=== PATIENT | female | born 1970 | race Two or more races ===

== ENCOUNTER 2024-01-26 09:31 | Outpatient (RCR) | payer MEDICAID, SELFPAY ==
--- NOTE | 2024-01-26 10:14 | PT.OIERPT ---
PT OP Initial Eval Patient Information Outpatient Physical Therapy Treatment Date: 01/26/24 Medical Diagnosis: F54.8 Z89.619 Treatment Dx #1: Gait imbalance with prosthesis Treatment Dx #2: Decreased transfers Start of Care: 01/26/24 Date of Onset: 12/27/22 Smoking Status Smoking Status: Never smoker Initial Assessment Subjective: Pt is 53 yr old bruneian speaking female presents with in W/C. 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 Pt's helps her stand pivot transfer from W/C and she doesn't ambulate at home since she doesn't trust her balance. Pt c/o pain where prosthesis meets her glute on R. PMH: extensive including acute renal failure, AVN, septic shock, cellulitis, PNA. Was admitted in hospital in [facility] for 5 months last year. Pt goal: to ambulate with prosthesis with good balance Objective: Transfers: Sit to stand: CGA to stand up if she uses hands on parallel bars. Without hand support, min/modAx1 Gait: CGA for safety with gait belt, painful prosthesis with compensation to avoid pain R hip AROM: Extension: neutral Flexion: 90 deg Assessment: Pt had difficulty donning the prosthesis in sitting with husbands help. Once it was on, she transferred from W/C to standing with hands pulling up on the parallel bars. She then ambulated with CGA about 20' with R glute pain but no LOB. Pt requires skilled therapy to meet goals and has fair/good rehab potential. Short Term and Personal Health Coach Goals 1. Do HEP with safely 2. Transfer from sit to stand with FWW and CGA 3. Stand pivot transfer with CGA and FWW 4. Ambulate with FWW HH distances and limited community with prosthesis safely Treatment Plan ? 1. Manual therapy ? 2. Therex ? 3. Modalities as indicated, moist heat, ice, estim Frequency and Duration: 1-2x a week for 24 visits. Certification Dates: 01/26/24 to 04/25/24 Procedure Charges OP PT Eval Mod Complex 30 minutes: Yes
== END 2024-02-05 23:59 | disposition home or self-care (01) ==
LOC: CPTX 09:31
PROVIDERS: PCP Physician Assistant; Referring Provider Physician Assistant; Visit Provider Physician Assistant
DX: R26.89 Other abnormalities of gait and mobility (principal); Z89.619 Acquired absence of unspecified leg above knee
CPT/HCPCS: 97162

== ENCOUNTER 2024-02-24 11:30 | Outpatient (RCR) | payer MEDICAID, SELFPAY ==
--- NOTE | 2024-02-07 12:10 | PT.ODAYNRPT ---
PT Outpatient Daily Note OP Daily Note Outpatient Physical Therapy Treatment Date: 02/07/24 Visit Reasons: Plexus disorders Subjective: Pt has a FWW at home but hasn't tried walking with it. Presents in W/C Objective: See F/S for therex Assessment: Pt able to ambulate with CGA and gait belt with FWW for safety. She stepped wrong once and almost lost balance but corrected with Yordy. Plan: Continue per POC Length of Time (minutes) of Treatment: 30 Minutes Procedure Charges Therapeutic Exercise 30 minutes: Yes
--- NOTE | 2024-02-10 11:49 | PT.ODAYNRPT ---
PT Outpatient Daily Note OP Daily Note Outpatient Physical Therapy Treatment Date: 02/10/24 Visit Reasons: Plexus disorders Subjective: Presents in W/C and wants to do the bike but not the total gym today due to L foot pain Objective: See F/S for therex Assessment: Pt able to ambulate x50' with CGA and gait belt with FWW for safety. She catches her R shoe during swing phase sometimes. Plan: Continue per POC Length of Time (minutes) of Treatment: 30 Minutes Procedure Charges Therapeutic Exercise 30 minutes: Yes
--- NOTE | 2024-02-17 13:23 | PT.ODAYNRPT ---
PT Outpatient Daily Note OP Daily Note Outpatient Physical Therapy Treatment Date: 02/17/24 Visit Reasons: Plexus disorders Subjective: Presents in W/C and wants to do the bike but not the total gym today due to L foot pain Objective: See F/S for therex Assessment: Pt able to ambulate x70' with CGA and gait belt with FWW for safety. She catches her R shoe less during swing phase recently Plan: Continue per POC Length of Time (minutes) of Treatment: 30 Minutes Procedure Charges Therapeutic Exercise 30 minutes: Yes
--- NOTE | 2024-02-22 19:10 | PT.ODAYNRPT ---
PT Outpatient Daily Note OP Daily Note Outpatient Physical Therapy Treatment Date: 02/22/24 Visit Reasons: Plexus disorders Subjective: Presents in W/C and wants to do the bike but not the total gym today due to L foot pain Objective: See F/S for therex Assessment: Pt able to ambulate x80' with CGA and gait belt with FWW for safety. She catches her R shoe less during swing phase recently Plan: Continue per POC Length of Time (minutes) of Treatment: 30 Minutes Procedure Charges Therapeutic Exercise 30 minutes: Yes
--- NOTE | 2024-02-24 16:53 | PT.ODAYNRPT ---
PT Outpatient Daily Note OP Daily Note Outpatient Physical Therapy Treatment Date: 02/24/24 Visit Reasons: Plexus disorders Subjective: Presents in W/C and wants to do the bike Objective: See F/S for therex Assessment: Unsteady balance in standing without hands in parallel bars. Required PT assist to maintain balance. Pt able to ambulate x80' with CGA and gait belt with FWW for safety. She catches her R shoe less during swing phase recently Plan: Continue per POC Length of Time (minutes) of Treatment: 30 Minutes Procedure Charges Therapeutic Exercise 30 minutes: Yes
== END 2024-03-07 23:59 | disposition home or self-care (01) ==
LOC: CPTX 11:30
PROVIDERS: PCP Physician Assistant; Referring Provider Physician Assistant; Visit Provider Physician Assistant
DX: R26.89 Other abnormalities of gait and mobility (principal); Z89.619 Acquired absence of unspecified leg above knee
CPT/HCPCS: 97110

== ENCOUNTER → 2024-03-24 | Outpatient (CLI) | payer MEDICAID, SELFPAY ==
--- NOTE | 2024-03-24 13:15 | XR_ITS ---
Examination: Screening digital mammography, bilateral Computer aided detection 3-D breast Tomosynthesis, bilateral Date and time of exam: March 24, 2024 1243 hrs. Compared to mammograms dating to August 21, 2015 Indication: Screening Technique: Nonmagnified MLO, CC views of the breasts to been obtained, reconstructed from 3-D Tomosynthesis images. R2 computer aided detection program utilized for evaluation of suspicious masses and/or abnormal calcifications. 3-D Tomosynthesis images obtained. Findings: Scattered areas of fibroglandular density. Benign calcifications. No interval suspicious masses Impression: BI-RADS category II: Benign Findings. Recommend 1 year follow-up mammogram.
== END | disposition home or self-care (01) ==
PROVIDERS: Referring Provider Physician Assistant; Visit Provider Physician Assistant
DX: Z12.31 Encounter for screening mammogram for malignant neoplasm of breast (principal); R92.323 Mammographic fibroglandular density, bilateral breasts; R92.1 Mammographic calcification found on diagnostic imaging of breast
CPT/HCPCS: 77063; 77067